=== PATIENT | female | born 1955 | race African-American/Black ===

== ENCOUNTER 2022-01-28 16:04 | Inpatient (IN) | payer MEDICAID, OTHER ==
[~2022-01-28] VITALS: Ht 162.6 cm; Wt 53.1 kg
[~2022-01-28 16:04] MED LIST: TYLENOL # 3; [UNRECOGNIZED DRUG - REMARK]
[2022-01-28] MEDS ORDERED: PANTOPRAZOLE SODIUM 40 MG/VIAL IV STA (16:15)
[2022-01-28] MEDS ORDERED: PANTOPRAZOLE 80 MG in SODIUM CHLORIDE 0.9% 100 ML IV STA (16:15)
[2022-01-28] MEDS ORDERED: SODIUM CHLORIDE 0.9% 1,000 ML IV ONE ×2 (16:15→21:45)
[2022-01-28 17:03] LABS: BASOPHILS % 0.4 % (0.0-2.0); EOSINOPHILS % 0.1 % (0.0-5.0); MEAN CORPUSCULAR HEMOGLOBIN 28.3 pg (28.0-32.0); MEAN CORPUSCULAR VOLUME 96.5 fL (81.0-99.0); MEAN PLATELET VOLUME 6.6 fl (7.4-10.4); MONOCYTES % 4.9 % (2.0-8.0); NEUTROPHILS % 69.6 % (40.0-76.0); PLATELET 498 x1000/uL (130-400); RED CELL DISTRIBUTION WIDTH 17.6 % (11.6-14.6)
[2022-01-28 17:08] LABS: HEMOGLOBIN. 5.1 g/dL (12.0-16.0)
[2022-01-28 17:09] LABS: HEMATOCRIT. 17.4 % (36.0-48.0)
[2022-01-28 17:12] LABS: INR 1.1; PROTHROMBIN TIME 11.5 sec (9.6-11.0)
[2022-01-28 17:14] LABS: CHLORIDE 105 mEq/L (98-107)
[2022-01-29] VITALS (16 sets, daily range): BP systolic 74–129; BP diastolic 42–77
[2022-01-29] MEDS ORDERED: DEXTROSE 50% WATER 50ML SYRINGE IV PRN (02:00)
[2022-01-29 02:14] LABS: HEMATOCRIT 22.2 % (36.0-48.0); HEMOGLOBIN 7.5 g/dL (12.0-16.0)
[2022-01-29] MEDS: SODIUM CHLORIDE 0.9% 1,000 ML IV SCH ×2 (02:29→17:29)
[2022-01-29] MEDS: PANTOPRAZOLE 80 MG in SODIUM CHLORIDE 0.9% 100 ML IV SCH ×2 (02:59→13:22)
[2022-01-29] MEDS: BLOOD SUGAR DIAGNOSTIC STRIP TEST SCH ×3 (06:26→17:17)
[2022-01-29 07:18] LABS: BASOPHILS % 0.6 % (0.0-2.0); EOSINOPHILS % 0.1 % (0.0-5.0); HEMATOCRIT. 22.4 % (36.0-48.0); HEMOGLOBIN. 7.5 g/dL (12.0-16.0); LYMPHOCYTES % 35.9 % (20.0-50.0); MEAN CORPUSCULAR HEMOGLOBIN 30.8 pg (28.0-32.0); MEAN CORPUSCULAR VOLUME 92.2 fL (81.0-99.0); MEAN PLATELET VOLUME 6.5 fl (7.4-10.4); MONOCYTES % 7.5 % (2.0-8.0); NEUTROPHILS % 55.9 % (40.0-76.0); PLATELET 323 x1000/uL (130-400); RED BLOOD CELL COUNT 2.43 mill/uL (4.2-5.4); RED CELL DISTRIBUTION WIDTH 15.5 % (11.6-14.6)
[2022-01-29 07:50] LABS: CHLORIDE 114 mEq/L (98-107)
[2022-01-29] MEDS: INSULIN LISPRO 100 UNITS/ML SUBCUT SCH ×3 (08:00→17:18)
[2022-01-29] MEDS ORDERED: ATROPINE SULFATE 1MG/10ML SYR ONE (09:10)
[2022-01-29] MEDS ORDERED: ETOMIDATE 2MG/ML 10ML VIAL IV ONE (09:10)
[2022-01-29] MEDS ORDERED: SUCCINYLCHOLINE CHLORIDE 200MG/10ML IV ONE (09:10)
[2022-01-29] MEDS ORDERED: DEXTROSE 50% WATER 50ML SYRINGE IV ONE (09:30)
[2022-01-29] MEDS ORDERED: SODIUM BICARBONATE 8.4% 1 MEQ/ML 50ML SYR IV ONE (09:30)
[2022-01-29] MEDS ORDERED: MAGNESIUM SULFATE 4G IN WATER 100ML PREMIX IV ONE (09:30)
[2022-01-29] MEDS ORDERED: CALCIUM CHLORIDE 1GM/10ML SYR IV ONE (09:30)
[2022-01-29] MEDS ORDERED: EPINEPHRINE 0.1MG/ML (1:10,000) 10ML SYR ONE (09:30)
[2022-01-29] MEDS ORDERED: AMIODARONE HCL 50MG/ML 3ML VIAL IV ONE (09:30)
[2022-01-29] MEDS ORDERED: BARIUM SULFATE 450ML ORAL SUSP PO SCH (10:30)
[2022-01-29 14:24] LABS: CLARITY URINE CLOUDY (CLEAR); COLOR URINE DARK YELLOW (YELLOW); KETONES URINE 1+ (NEGATIVE); LEUKOCYTE ESTERASE URINE 3+ (NEGATIVE); NITRITE URINE NEGATIVE (NEGATIVE); OCCULT BLOOD URINE 3+ (NEGATIVE); PROTEIN URINE NEGATIVE (NEGATIVE); SPECIFIC GRAVITY URINE 1.016 (1.005-1.030); UROBILINOGEN URINE 0.2 E.U./dL (0.2-1.0)
[2022-01-29] MEDS ORDERED: DIATR MEGLU/DIATRIZOATE SOLN 30ML ONE (15:32)
[2022-01-29] MEDS ORDERED: DIATR MEGLU/DIATRIZOATE SOLN 120ML ONE (15:36)
[2022-01-29] MEDS ORDERED: PHENYLEPHRINE 50 MG in DEXT 5% WATER 245 ML IV PRN (18:00)
[2022-01-29 18:35] LABS: MEAN CORPUSCULAR VOLUME 96.9 fL (81.0-99.0); PLATELET 306 x1000/uL (130-400); RED BLOOD CELL COUNT 1.34 mill/uL (4.2-5.4); RED CELL DISTRIBUTION WIDTH 16.4 % (11.6-14.6)
[2022-01-29] MEDS ORDERED: FERROUS SULFATE 325MG TABLET PO SCH (18:45)
[2022-01-29] MEDS ORDERED: ASCORBIC ACID 500 MG TABLET PO SCH (18:45)
[2022-01-29] MEDS ORDERED: OCTREOTIDE 1,000 MCG in SODIUM CHLORIDE 0.9% 98 ML IV SCH (19:15)
[2022-01-29 19:25] LABS: TOTAL IRON BINDING CAPACITY 155 ug/dL (250-450)
[2022-01-29] MEDS ORDERED: VASOPRESSIN 20 UNIT in SODIUM CHLORIDE 0.9% 99 ML IV PRN (19:30)
[2022-01-29 19:50] LABS: VITAMIN B12 SERUM 1249 pg/mL (211-911)
[2022-01-29 19:51] LABS: FERRITIN 330 ng/mL (10-291)
[2022-01-29 19:55] LABS: FOLIC ACID (FOLATE) SERUM > 20.00 ng/mL (>5.38)
[2022-01-29 20:15] LABS: INR 1.2
[2022-01-29] MEDS ORDERED: PIPERACILLIN/TAZOBACTAM 3.375 G in DEXTROSE 5% WATER 50 ML IV SCH (22:00)
[2022-01-30] MEDS ORDERED: PANTOPRAZOLE SODIUM 40 MG/VIAL IV SCH (08:00)
== END 2022-01-29 19:26 | DRG 244 ==
LOC: ER 16:04 → 8WST 19:36 → ENRESERV 20:55 → 5EST 01-29 07:24 → CVICU 01-29 18:06
PROVIDERS: ADMIT Internal Medicine; ATTEND Internal Medicine
PROC: 30233N1 Transfusion of Nonautologous Red Blood Cells into Peripheral Vein, Percutaneous Approach (ICD-10-PCS; 2022-01-28)
PROC: 5A12012 Performance of Cardiac Output, Single, Manual (ICD-10-PCS; principal; 2022-01-29)
PROC: 0BH17EZ Insertion of Endotracheal Airway into Trachea, Via Natural or Artificial Opening (ICD-10-PCS; 2022-01-29)
PROC: 3E0A3GC Introduction of Other Therapeutic Substance into Bone Marrow, Percutaneous Approach (ICD-10-PCS; 2022-01-29)
DX: K57.91 Diverticulosis of intestine, part unspecified, without perforation or abscess with bleeding (principal); R57.8 Other shock; I46.9 Cardiac arrest, cause unspecified; I42.9 Cardiomyopathy, unspecified; E88.09 Other disorders of plasma-protein metabolism, not elsewhere classified; I47.2 Ventricular tachycardia; J44.9 Chronic obstructive pulmonary disease, unspecified; I50.9 Heart failure, unspecified; N39.0 Urinary tract infection, site not specified; I11.0 Hypertensive heart disease with heart failure; D64.9 Anemia, unspecified; E78.5 Hyperlipidemia, unspecified; I49.01 Ventricular fibrillation; Z82.49 Family history of ischemic heart disease and other diseases of the circulatory system; Z87.11 Personal history of peptic ulcer disease; Z86.19 Personal history of other infectious and parasitic diseases
CPT/HCPCS: 36415; 74176; 80053; 81003; 82607; 82728; 82746; 82962; 83036; 83540; 83550; 83605; 84484; 85014; 85018; 85025; 85027; 85044; 86850; 86900; 86920; 92950; 93005; 93306; 99291; C9113; J0282; J0330; J0461; J2354; J2543; J3475; J3490; J7030; J7050; J7060; P9016; Q9963